=== PATIENT | female | born 1970 | race Caucasian/White ===

== ENCOUNTER 2021-04-09 10:42 | Emergency (ER) | payer OTHER ==
[~2021-04-09] VITALS: Ht 162.6 cm; Wt 74.8 kg
[2021-04-09] MEDS ORDERED: AUGMENTIN 875-1 EACH PO ×2 (14:23→15:04)
[2021-04-09] MEDS ORDERED: CORTISPORIN OTI10 M2 OTIC ×2 (14:23→15:04)
[2021-04-09 15:00] VITALS: BP 122/73
[2021-04-09] MEDS ORDERED: NORCO5 PO (15:16)
== END 2021-04-09 15:08 | disposition home or self-care (01) ==
LOC: ER 10:42
DX: J18.9 Pneumonia, unspecified organism (principal); H60.91 Unspecified otitis externa, right ear; K08.89 Other specified disorders of teeth and supporting structures; I50.9 Heart failure, unspecified; Z20.822 Contact with and (suspected) exposure to COVID-19; Z85.01 Personal history of malignant neoplasm of esophagus; Z85.038 Personal history of other malignant neoplasm of large intestine